=== PATIENT | female | born 1985 | race African-American/Black ===

== ENCOUNTER 2017-12-24 05:32 | Emergency (ER) | payer SELFPAY ==
[2017-12-24 05:54] VITALS: BP 115/72; PULSE 67; TEMP 98.6; BMI 26.6
[2017-12-24] MEDS ORDERED: ONDANSETRON 4 MG TABLET PO ONE (06:03)
[2017-12-24] MEDS ORDERED: MAG HYDROX/AL HYDROX/SIMETH 30 ML UNIT-DOSE CUP PO ONE (06:03)
[2017-12-24] MEDS ORDERED: ONDANSETRON *ODT* 4 MG TABLET ONE (06:06)
[2017-12-24] MEDS ORDERED: MAG HYDROX/AL HYDROX/SIMETH 30 ML UNIT-DOSE CUP ONE (06:06)
--- NOTE | 2017-12-24 06:27 | PDOC ---
History of Present Illness - General Chief Complaint: Pain, Acute Stated Complaint: ABDOMINAL PAIN Time Seen by Provider: 12/24/17 05:46 History Source: Patient - History of Present Illness Initial Comments: 12/24/17 06:14 32 year old transgender M->F c/o epigastric abdominal discomfort after eating sushi last night. vomited 2x and now with abdominal pain. Past History - Past Medical History Allergies/Adverse Reactions: Allergies Allergy/AdvReac Type Severity Reaction Status Date / Time No Known Allergies Allergy Verified 12/24/17 05:53 - Suicide/Smoking/Psychosocial Hx Smoking History: Never smoked Have you smoked in the past 12 months: No Information on smoking cessation initiated: No Hx Alcohol Use: No Drug/Substance Use Hx: No Review of Systems - Review of Systems Able to Perform ROS?: Yes Is the patient limited [place]ian proficient: No Constitutional: Yes: Fever ABD/GI: Yes: Nausea, Vomiting, Abdominal cramping : No: Symptoms Reported, See HPI, Burning, Dysuria, Discharge, Frequency, Flank Pain, Hematuria, Incontinence, Pain, Urgency, Testicular Mass, Testicular Swelling, Lesions, Testicular Pain, Other *Physical Exam - Vital Signs Last Vital Signs Temp Pulse Resp BP Pulse Ox 98.6 F 67 20 115/72 97 12/24/17 05:53 12/24/17 05:53 12/24/17 05:53 12/24/17 05:53 12/24/17 05:53 - Physical Exam General Appearance: Yes: Appropriately Dressed Respiratory/Chest: positive: Lungs Clear, Normal Breath Sounds Gastrointestinal/Abdominal: positive: Normal Bowel Sounds, Tender (epigastric to midabdominal are), Flat, Soft Medical Decision Making - Medical Decision Making 12/24/17 06:31 patient reports feeling better. will d/c home *DC/Admit/Observation/Transfer Diagnosis at time of Disposition: Acute gastroenteritis - Discharge Dispostion Disposition: HOME - Referrals Referrals: Dillon Villatoro MD [Primary Care Provider] - Call tomorrow - Patient Instructions Printed Discharge Instructions: Viral Gastroenteritis Additional Instructions: Drink plenty of fluids Start a brat diet (bananas, rice, apples, toast) Follow up with you doctor as soon as possible Return to the ER if symptoms worsen - Post Discharge Activity Forms/Work/School Notes: Back to Work
== END 2017-12-24 06:56 | disposition home or self-care (01) ==
LOC: JER 05:32
DX: K52.9 Noninfective gastroenteritis and colitis, unspecified (principal)
CPT/HCPCS: 99281-25